=== PATIENT | female | born 1990 ===

== ENCOUNTER 2022-11-12 07:34 | Outpatient (RCR) | payer OTHER, SELFPAY | END 2022-11-26 23:59 | disposition home or self-care (01) | LOC: SPT 07:34 | PROVIDERS: Visit Provider Pediatrics | DX: N81.10 Cystocele, unspecified (principal); N39.3 Stress incontinence (female) (male) | CPT/HCPCS: 97161 ==

== ENCOUNTER 2022-11-27 06:00 | Outpatient (RCR) | payer OTHER, SELFPAY | END 2022-12-26 23:59 | disposition home or self-care (01) | LOC: SPT 06:00 | PROVIDERS: Visit Provider Pediatrics | DX: N81.10 Cystocele, unspecified (principal); N39.3 Stress incontinence (female) (male) | CPT/HCPCS: 97110; 97530 ==

== ENCOUNTER 2022-12-27 06:00 | Outpatient (RCR) | payer OTHER, SELFPAY | END 2023-01-26 23:59 | disposition home or self-care (01) | LOC: SPT 06:00 | PROVIDERS: Visit Provider Pediatrics | DX: N81.10 Cystocele, unspecified (principal); N39.3 Stress incontinence (female) (male) | CPT/HCPCS: 97110 ==

== ENCOUNTER 2023-01-27 06:00 | Outpatient (RCR) | payer OTHER, SELFPAY | END 2023-02-26 23:59 | disposition home or self-care (01) | LOC: SPT 06:00 | PROVIDERS: Visit Provider Pediatrics | DX: N81.10 Cystocele, unspecified (principal); N39.3 Stress incontinence (female) (male) | CPT/HCPCS: 20560; 97110; 97530 ==

== ENCOUNTER 2023-02-27 06:00 | Outpatient (RCR) | payer OTHER, SELFPAY | END 2023-03-28 23:59 | disposition home or self-care (01) | LOC: SPT 06:00 | PROVIDERS: Visit Provider Pediatrics | DX: N81.10 Cystocele, unspecified (principal); N39.3 Stress incontinence (female) (male) | CPT/HCPCS: 97110 ==